=== PATIENT | male | born 1985 | race Two or more races ===

== ENCOUNTER → 2020-06-19 14:43 | Outpatient (BNVA) | payer BC, SELFPAY | PROVIDERS: PCP Internal Medicine; Visit Provider Surgery ==

== ENCOUNTER 2020-07-02 14:03 | Outpatient (REF) | payer BC, SELFPAY ==
[2020-07-02 14:05] VITALS: BP 130/88; PULSE 93; RESP 15; TEMP 37.3; O2SAT 99; BMI 23.4
[2020-07-02 14:26] VITALS: BP 126/71; PULSE 95; RESP 16; O2SAT 99
--- NOTE | 2020-07-02 14:30 | W.PM.OPN ---
Operative Note Operative Note Date of Service: 07/02/20 Narrative: PROCEDURE: EXCISION OF CYST, LEFT EARLOBE PREOP DIAGNOSIS: CYST, LEFT EARLOBE POSTOP DIAGNOSIS: THE SAME ABOVE SURGEON: MARYANN VANCE MD The patient is a 35-year-old male with note of an area of recurrent drainage and swelling on the posterior aspect of the left earlobe. He was seen in the office and was noted to have what appeared to be a cystic induration in the area. This also corresponded to an area of previous ear piercing. This measured about 5mm in size. He understood the technique of excision under local anesthesia. He was aware of the risks, benefits, and alternatives. The patient is brought to the minor procedure room. He was placed supine with the the right. The external ear was retracted forward and was secured in place with tape to expose the posterior aspect of the left earlobe. This cystic induration was noted. This area was prepped and draped. Lidocaine 1% was used for local anesthesia. I made an elliptical incision around this induration using blade 15 extended to the full-thickness skin and part of the subcutaneous layer excise this entire cystic induration. I then closed this incision with full-thickness nylon 5-0 interrupted sutures. Dressings were applied. He tolerated procedure well. There were no complication noted. EBL was 1 cc. He will be seen in the office for follow-up in 1-2 weeks for removal sutures.
== END 2020-07-02 14:04 | disposition home or self-care (01) ==
LOC: HO.MS 14:03
PROVIDERS: PCP Internal Medicine; Visit Provider Surgery
PROC: (CPT 11441; principal; 2020-07-02 14:25)
DX: L72.0 Epidermal cyst (principal); F17.210 Nicotine dependence, cigarettes, uncomplicated
CPT/HCPCS: 11441; 88304

== ENCOUNTER → 2020-07-16 13:43 | Outpatient (BNVA) | payer BC, SELFPAY | PROVIDERS: PCP Internal Medicine; Visit Provider Surgery ==

== ENCOUNTER 2022-06-23 15:29 | Outpatient (REF) | payer BC, SELFPAY ==
[2022-06-25 09:14] LABS: HBc Num1 0.13 S/CO (0.00-0.79); HBsAGNum1 0.31 S/CO (0.00-0.99); HIV AB/AG Nonreactive (Nonreactive); HIV Num 1 0.06 S/CO (0.00-0.99); Hepatitis B Core Antibody Nonreactive (Nonreactive); Hepatitis B Surface Antigen Negative (Negative); ~HepC Num1 0.07 S/CO (0.00-0.79); ~Hepatitis C Antibody Nonreactive (Nonreactive)
[2022-06-25 10:42] LABS: HBS Num1 76.26 mIU/mL (0-7.99); ~Hepatitis B Surface Antibody REACTIVE (Nonreactive)
[2022-06-28 21:52] LABS: Treponema pallidum Ab FTA ABS Nonreactive (Nonreactive)
== END 2022-06-23 15:30 | disposition home or self-care (01) ==
LOC: HO.LAB 15:29
PROVIDERS: PCP Internal Medicine; Visit Provider Internal Medicine
DX: Z00.00 Encounter for general adult medical examination without abnormal findings (principal); R79.89 Other specified abnormal findings of blood chemistry
CPT/HCPCS: 36415; 86704; 86706; 86780; 86803; 87340; 87389

== ENCOUNTER 2023-07-11 17:26 | Outpatient (AMB) | payer BC, SELFPAY ==
[2023-07-11 17:29] VITALS: BP 120/82; PULSE 65; O2SAT 97; BMI 25.0
--- NOTE | 2023-07-11 17:29 | A.OFFPC_ITS ---
Vital Signs 07/11/23 17:29 Height 5 ft 7 in Weight 159 lb 8 oz BMI 25.0 BP 120/82 Blood Pressure Location Lt brachial Position Sitting Pulse 65 Pulse Source Pulse Oximeter Pulse Oximetry (%) 97 Oxygen Delivery Method Room Air Intake Visit Reasons: physical Intake Note: Patient is here today for a physical. Political Worker Required: No Accompanied by: Self / Same As Patient Allergies No Known Allergies Allergy (Verified 07/11/23 17:34) Medication List - Last Reconciled 07/11/23 by Patricia Hinojosa MD No Known Home Meds Tobacco use date assessed: 07/11/23 Dental Screening Dental Screen Date: 07/11/23 Did you have a dental visit in the last 12 months?: Yes Did you have a dental problem in the last 6 months where you did not have access to dental care?: No Was dental information given to patient?: Patient has dentist HPI physical HPI Details 38-year-old male smoker coming in for ph ysical exam. Review of the notes has seen by Podiatry October 2022 for plantar wart and had wart destruction as well as ciclopirox cream. noted loosing hair on his lambert and concern on this problem [facility] Medical History (Updated 07/11/23 @ 18:15 by Patricia Hinojosa MD) Earlobe lesion Tinea cruris Ear pain, left Tobacco abuse Surgical History History of removal of cyst No pertinent past surgical history Family History Father No problems noted. Mother Esophageal cancer Depression Maternal Grandmother CVD (cardiovascular disease) Myocardial infarction Maternal Aunt Breast cancer Maternal Uncle Substance abuse Brother Depression Other Mental health problem Social History (Updated 07/11/23 @ 18:02 by Patricia Hinojosa MD) Housing: House Alcohol intake: current Alcohol intake frequency: holidays/special occasions only Comment: 2 beer once a month Patient Tobacco Use Status: Current everyday Tobacco user Cigarette Packs Per Day: 0.5 Cigarettes Per Day: 20 Years Smoked: started 15 years old e-Cigarette/Vaping Use: Former Use Second Hand Smoke Exposure: Yes service: No Current occupational status: employed Cognitive needs: No Hearing needs: No Vision needs: Yes Questionnaire PHQ-9 Over the last 2 weeks, how often have you been bothered by any of the following problems? 1. Little interest or pleasure in doing things: not at all 2. Feeling down, depressed, or hopeless: not at all 3. Trouble falling or staying asleep, or sleeping too much: not at all 4. Feeling tired or having little energy: not at all 5. Poor appetite or overeating: not at all 6. Feeling bad about yourself - or that you are a failure or have let yourself or your family down: not at all 7. Trouble concentrating on things, such as reading the newspaper or watching television: not at all 8. Moving or speaking so slowly that other people could have noticed. Or the opposite - being so fidgety or restless that you have been moving around a lot more than usual: not at all 9. Thoughts that you would be better off or of hurting yourself in some way: not at all Total score: 0 Depression Screening Interpretation: Negative Depression Screening Done: Yes 79466 - PHQ-9 Billing: Yes Source: Developed by Drs. Navid Morgan, Amarilis Danielle, John Solo and colleagues, with an educational pool from [employer]. Thrive Questionnaire Date Thrive assessed: 07/11/23 I am a: Patient What is your living situation today?: I have a steady place to live Within the past 12 months, did the food you bought not last and you didn't have the money to get more?: Never true Within the past 12 months, did you worry whether your food would run out before you got money to buy more?: Never true Do you have trouble paying for medicines?: No Do you have trouble getting transportation to medical appointments?: No Do you have trouble paying your heating and electricity bill?: No Do you have trouble taking care of your child, family member or friend?: No Do you have trouble with day-to-day activities such as bathing, preparing meals, shopping, managing finances, etc.?: No Are you currently unemployed and looking for a job?: No Are you interested in more education?: No Please select the resources that you would like help with: None Currently or been in a relationship where the following occur: no concerns reported THRIVE Score: 0 AUDIT C Alcohol Use Questionnaire (AUDIT-C) 1. How often do you have a drink containing alcohol?: Monthly or less 3. How often do you have six or more drinks on one occasion?: Never Total Score: 1 MOLLY-7 AMB Questionnaire MOLLY-7 Date MOLLY - 7 assessed: 07/11/23 Feeling nervous, anxious, or on edge: 0 = Not at all Not being able to stop or control worryin = Not at all Worrying too much about different things: 0 = Not at all Trouble relaxin = Not at all Being so restless that it is hard to sit still: 0 = Not at all Becoming easily annoyed or irritable: 0 = Not at all Feeling afraid as if something awful might happen: 0 = Not at all Total MOLLY-7 score (0-4 normal; 5-9 mild; 10-14 moderate; 15-21 severe): 0 Source: Developed by Drs. Navid Morgan, Amarilis Danielle, John Solo and colleagues, with an educational pool from [employer]. MOLLY-7 Assessment Billing MOLLY-7 Assessment Tool: MOLLY-7 Assessment 22279 Review of Systems Const Denies poor appetite and Denies weakness Eyes Denies no additional complaints ENT Reports Normal hearing present, Denies dizziness, Denies nasal congestion, Denies tinnitus and Denies sore throat Card Denies chest pain, Denies syncope, Denies rapid heart rate and Denies dyspnea Resp Denies cough and Denies dyspnea GI Denies change in stool character, Reports constipation, Denies diarrhea, Denies nausea and Denies vomiting Denies dysuria and Denies urinary frequency Neuro Reports Normal hearing present, Denies confusion, Denies dizziness, Denies syncope and Denies weakness Psych Denies confusion Physical exam (Primary Care) Vital Signs: Last Vital Signs Pulse 65 07/11/23 17:29 BP 120/82 07/11/23 17:29 Pulse Ox 97 07/11/23 17:29 Oxygen Delivery Method Room Air 07/11/23 17:29 BMI result Body Mass Index 25.0 Tobacco/Smoking Status: Tobacco use Status Tobacco use date assessed 07/11/23 07/11/23 17:35 Patient Tobacco Use Status Current everyday Tobacco 07/11/23 17:35 e-Cigarette/Vaping Use Former Use 07/11/23 17:35 PHQ-9: PHQ-9 Score PHQ-9: Total score 0 07/11/23 17:35 Depression Screening Interpretation: Negative Thrive Assessment: Date of Thrive Assessment Date Thrive assessed 07/11/23 07/11/23 17:35 Currently or been in a relationship where the following occur: no concerns reported Const General: No confusion Orientation/consciousness: No confusion HENMT Head: Yes normocephalic Ears: external ears normal and TM's normal bilaterally Face and sinus: Yes normal facial exam Mouth: moist mucous membranes Throat: Yes tonsils normal Eyes Conjunctivae: conjunctivae normal Pupils: Equal, round and reactive pupils present and Pupil accommodation reflex normal Direct Ophthalmoscopy: normal light reflex Neck Neck: No lymphadenopathy Thyroid: Thyroid normal Chest Chest palpation & inspection: normal inspection of the chest Resp Effort & Inspection: normal respiratory effort and no audible wheezes Auscultation: clear to auscultation bilaterally, no crackles, no wheezes and lung sounds not diminished Cardio Rate: regular rate Rhythm: regular rhythm Peripheral pulses: radial pulses present and dorsalis pedis present GI Other: visual exam negative Palpation (GI): no masses Auscultation: normal bowel sounds and normoactive bowel sounds Rectal Exam - Male: Yes deferred Male General Exam: Yes normal external exam Skin General skin exam: no rashes or lesions noted Rashes: no rashes Neuro General: No confusion Cranial nerves: Yes Equal, round and reactive pupils present and Yes Normal hearing present Cognition (Neuro): normal cognition Gait exam (Neuro): Normal gait present Motor exam (neuro): 5/5 motor strength present throughout Deep tendon reflexes (DTR's): Right brachioradialis reflex intensity grade: 2+, Left brachioradialis reflex intensity grade: 2+, Right patellar reflex intensity grade: 2+ and Left patellar reflex intensity grade: 2+ Extrem General: No edema Assessment and Plan Assessment & Plan (1) Annual physical exam: Code(s): Z00.00 - Encounter for general adult medical examination without abnormal findings (2) Plantar wart of both feet: Code(s): B07.0 - Plantar wart Plan: Patient has seen the podiatry October 2022 and has had destruction of the verruca (3) Tobacco abuse: Code(s): Z72.0 - Tobacco use Plan: Patient is strongly advised to stop smoking! (4) Hair loss: Code(s): L65.9 - Nonscarring hair loss, unspecified Orders: Orders Comprehensive Met. Panel Today L65.9 - Nonscarring hair loss, unspecified Free T4 (Free Thyroxine) Today L65.9 - Nonscarring hair loss, unspecified Thyroid Stimulating Hormone Today L65.9 - Nonscarring hair loss, unspecified Lipid Panel Today E78.00 - Pure hypercholesterolemia, unspecified, L65.9 - Nonscarring hair loss, unspecified Complete Blood Count Auto Diff Today L65.9 - Nonscarring hair loss, unspecified Vitamin B12 and Folate Today L65.9 - Nonscarring hair loss, unspecified Referrals Dermatology Referral L65.9 - Nonscarring hair loss, unspecified Coding Level of Care Code Est Pt Prev Care [id number]) Diagnoses Annual physical exam Z00.00 Plantar wart of both feet B07.0 Tobacco abuse Z72.0 Hair loss L65.9 Additional Codes MOLLY-7 Assessment Billing - OMLLY-7 Assessment Tool: MOLLY-7 Assessment [id number] ([id number])
== END 2023-07-11 18:19 | disposition home or self-care (01) ==
LOC: HO.HMGH 17:26
PROVIDERS: PCP Internal Medicine; Visit Provider Internal Medicine
DX: Z00.00 Encounter for general adult medical examination without abnormal findings (principal); B07.0 Plantar wart; Z72.0 Tobacco use; L65.9 Nonscarring hair loss, unspecified
CPT/HCPCS: 99395

== ENCOUNTER 2024-07-16 17:11 | Outpatient (AMB) | payer BC, SELFPAY ==
--- NOTE | 2024-07-16 17:49 | A.OFFPC_ITS ---
Vital Signs 07/16/24 17:51 Height 5 ft 7 in Weight 161 lb BMI 25.2 BP 120/80 Blood Pressure Location Lt brachial Position Sitting Pulse 57 Pulse Source Pulse Oximeter Pulse Oximetry (%) 99 Oxygen Delivery Method Room Air Intake Visit Reasons: pe Intake Note: patient here for a physical exam Counselor Aid Required: No Accompanied by: Self / Same As Patient Allergies No Known Allergies Allergy (Verified 07/16/24 17:56) Medication List - Last Reconciled 07/16/24 by Patrciia Hinojosa MD No Known Home Meds Tobacco use date assessed: 07/16/24 Dental Screening Dental Screen Date: 07/16/24 Did you have a dental visit in the last 12 months?: Yes Did you have a dental problem in the last 6 months where you did not have access to dental care?: No Was dental information given to patient?: Patient has dentist HPI pe HPI Details History of Present Illness The patient is a 39 year old male presenting with wellness concerns and requests for routine blood work and sexually transmitted infection testing. He is a smoker and uses cannabis recreationally, reporting difficulty with cessation. He has newly reported issues with hemorrhoids, experiencing intermittent bleeding when straining during bowel movements. The hemorrhoid condition has been identified in the past upon self-examination. Additionally, the patient describes experiencing an athlete's foot (suspected tinea pedis) attributed to prolonged hours in work boots. Previous medical history includes no other specified diagnosis, surgeries, or known allergic reactions. There is a notable family history of esophageal cancer in his mother, breast cancer in his aunt, and myocardial infarction in his grandmother. Recent evaluation for vision yielded no concerns. The patient reports consuming alcohol infrequently, approximately once a month, and prefers villa ade in daily consumption, without significant intake of water. No medication or tlaf-ilx-jfdmvib supplement use reported. Previous comprehensive health assessments, including eye examination, were last conducted in late 2022. Health Maintenance - Discussion on tobacco cessation and it s benefits, including reduced risks for heart attacks and lung cancer. - Advised lung cancer screening at age 5 0 if significant smoking history continues. - Instruction on adequate water intake t o improve hydration and aid digestion. - Counseled routine exercise and balance d diet high in fiber and green leafy vegetables to improve bowel health and prevent hemorrhoidal flare-ups. - Offered flu and COVID-19 vaccinations as preventive measures, with mention of respiratory syncytial virus (RSV) awareness during cold seasons. Social History - Smoker: Reports smoking cigarettes reg ularly. - Recreational cannabis user. - Alcohol intake occurs infrequently, ab out once per month. - Dietary habits predominantly include c onsumption of villa ade. - Employment involves prolonged hours we aring work boots, contributing to foot fungal infections. Review of Systems - Gastrointestinal: Reports occasional h eartburn (non-weekly). Denies nausea, vomiting, problem swallowing, or changes in bowel movement. - Respiratory: Denies shortness of breat h, chest pains, or coughing. - Neurological: Denies dizziness, fainti ng, or changes in hearing. - Urinary: Denies frequent nocturnal uri nation or difficulties. - Integumentary: Reports symptoms consis tent with tinea pedis. Physical Exam General: Cooperative, healthy appearing, comfortable, no acute distress and well developed Orientation: Patient oriented x3 Limitations: No limitations Head: Normal to inspection Ears: Hearing grossly normal bilaterally Nose: Normal external nose present Face and sinus: Normal facial exam Eyes: Appearance normal, both eyes and all related structures Neck: Normal visual inspection and Yes full ROM Respiratory: Normal respiratory effort and able to speak in complete sentences. Clear to auscultation bilaterally Cardiovascular: Regular rate and rhythm. Normal S1 and S2 GI: Normal to inspection. Soft to palpation and nontender Skin: No rashes or lesions noted, but patient reports redness and bumps due to shaving and a fungal infection on the foot Neuro: Patient oriented x3 Extremities: Normal to inspection, but patient reports hemorrhoids and occasional bleeding Results Plan - Recommend cessation of smoking and can nabis to reduce cardiovascular and pulmonary risks. - Promised prescription treatment for ti adriana pedis, with antifungal cream for use twice daily and supplementary powder for prevention. - Guidance on proper bathroom habits and increased dietary fiber to manage hemorrhoids. - Scheduled blood work including sexuall y transmitted infection screening. - Offer flu vaccination and educate on p otential benefits of COVID-19 vaccination. Patient was informed and verbally consented to the use of an ambient scribe for clinic note documentation during this visit. Discussion Notes I discussed with the patient the importance of stopping smoking and recreational cannabis use to improve long-term health outcomes, including reduced risks for cardiovascular events and potential lung cancer. We covered management for tinea pedis with antifungal treatment prescribed and recommended proper foot hygiene to prevent recurrence. I emphasized the importance of high dietary fiber intake to manage hemorrhoids and proper techniques to avoid straining during bowel movements. The patient consented to routine blood work, including sexually transmitted infection screening, and requested these to be carried out without scheduling. I advised on the efficacy and necessity of vaccinations against flu and COVID-19, particularly due to ongoing viral circulation. I instructed the patient to report any further bleeding or significant changes in symptoms, with a follow-up action dependent on blood work outcomes. Patient Instructions - Refrain from smoking tobacco and using cannabis. - Apply prescribed antifungal cream betw een toes and use the powder as directed. - Eat more high-fiber foods, such as veg etables and fruits, and drink plenty of water. - Use proper techniques when using the r estroom, avoiding straining. - Attend blood work for routine testing and STIs, fast 8 hours before. - Considering vaccination for flu and [place] VID-19 which will help protect during flu season. - Monitor for any changes in symptoms or increased bleeding, and report back if they occur. [facility] Medical History (Updated 07/16/24 @ 18:27 by Patricia Hinojosa MD) Earlobe lesion Tinea cruris Ear pain, left Tobacco abuse Surgical History History of removal of cyst No pertinent past surgical history Family History Father No problems noted. Mother Esophageal cancer Depression Maternal Grandmother CVD (cardiovascular disease) Myocardial infarction Maternal Aunt Breast cancer Maternal Uncle Substance abuse Brother Depression Other Mental health problem Social History Housing: House Alcohol intake: current Alcohol intake frequency: holidays/special occasions only Comment: 2 beer once a month Patient Tobacco Use Status: Current everyday Tobacco user Cigarettes Per Day: 10 Years Smoked: started 15 years old e-Cigarette/Vaping Use: Former Use Second Hand Smoke Exposure: Yes service: No Current occupational status: employed Current occupational exposures/hazards: No Cognitive needs: No Hearing needs: No Vision needs: Yes Questionnaire PHQ-9 Over the last 2 weeks, how often have you been bothered by any of the following problems? 1. Little interest or pleasure in doing things: not at all 2. Feeling down, depressed, or hopeless: not at all 3. Trouble falling or staying asleep, or sleeping too much: not at all 4. Feeling tired or having little energy: not at all 5. Poor appetite or overeating: not at all 6. Feeling bad about yourself - or that you are a failure or have let yourself or your family down: not at all 7. Trouble concentrating on things, such as reading the newspaper or watching television: not at all 8. Moving or speaking so slowly that other people could have noticed. Or the opposite - being so fidgety or restless that you have been moving around a lot more than usual: not at all 9. Thoughts that you would be better off or of hurting yourself in some way: not at all Total score: 0 Depression Screening Interpretation: Negative Depression Screening Done: Yes Source: Developed by Drs. Navid Morgan, Amarilis Danielle, John Solo and colleagues, with an educational pool from [employer] Thrive Questionnaire Date Thrive assessed: 07/16/24 I am a: Patient What is your living situation today?: I have a steady place to live Within the past 12 months, did the food you bought not last and you didn't have the money to get more?: Never true Within the past 12 months, did you worry whether your food would run out before you got money to buy more?: Never true Do you have trouble paying for medicines?: No Do you have trouble getting transportation to medical appointments?: No Do you have trouble paying your heating and electricity bill?: No Do you have trouble taking care of your child, family member or friend?: No Do you have trouble with day-to-day activities such as bathing, preparing meals, shopping, managing finances, etc.?: No Are you currently unemployed and looking for a job?: No Are you interested in more education?: No Please select the resources that you would like help with: None Currently or been in a relationship where the following occur: No concerns reported THRIVE Score: 0 AUDIT C Alcohol Use Questionnaire (AUDIT-C) 1. How often do you have a drink containing alcohol?: Monthly or less 2. How many drinks containing alcohol do you have on a typical day when you are drinking?: 1 or 2 3. How often do you have six or more drinks on one occasion?: Never Total Score: 1 MOLLY-7 AMB Questionnaire MOLLY-7 Date MOLLY - 7 assessed: 07/16/24 Feeling nervous, anxious, or on edge: 0 = Not at all Not being able to stop or control worryin = Not at all Worrying too much about different things: 0 = Not at all Trouble relaxin = Not at all Being so restless that it is hard to sit still: 0 = Not at all Becoming easily annoyed or irritable: 0 = Not at all Feeling afraid as if something awful might happen: 0 = Not at all Total MOLLY-7 score (0-4 normal; 5-9 mild; 10-14 moderate; 15-21 severe): 0 Source: Developed by Drs. Navid Morgan, Amarilis Danielle, John Solo and colleagues, with an educational pool from [employer]. Review of Systems Const Denies poor appetite and Denies weakness Eyes Denies no additional complaints ENT Reports Normal hearing present, Denies dizziness, Denies nasal congestion, Denies tinnitus and Denies sore throat Card Denies chest pain, Denies syncope, Denies rapid heart rate and Denies dyspnea Resp Denies cough and Denies dyspnea GI Denies change in stool character, Reports constipation, Denies diarrhea, Denies nausea and Denies vomiting Denies dysuria and Denies urinary frequency Neuro Reports Normal hearing present, Denies confusion, Denies dizziness, Denies syncope and Denies weakness Psych Denies confusion Physical exam (Primary Care) Vital Signs: Last Vital Signs Pulse 57 07/16/24 17:51 BP 120/80 07/16/24 17:51 Pulse Ox 99 07/16/24 17:51 Oxygen Delivery Method Room Air 07/16/24 17:51 BMI result Body Mass Index 25.2 Tobacco/Smoking Status: Tobacco use Status Tobacco use date assessed 07/16/24 07/16/24 18:00 Patient Tobacco Use Status Current everyday Tobacco 07/16/24 17:54 e-Cigarette/Vaping Use Former Use 07/16/24 17:54 PHQ-9: PHQ-9 Score PHQ-9: Total score 0 07/16/24 18:36 Depression Screening Interpretation: Negative Thrive Assessment: Date of Thrive Assessment Date Thrive assessed 07/16/24 07/16/24 17:54 Currently or been in a relationship where the following occur: No concerns reported Const General: No confusion Orientation/consciousness: No confusion HENMT Head: Yes normocephalic Ears: external ears normal and TM's normal bilaterally Face and sinus: Yes normal facial exam Mouth: moist mucous membranes Throat: Yes tonsils normal Eyes Conjunctivae: conjunctivae normal Pupils: Equal, round and reactive pupils present and Pupil accommodation reflex normal Direct Ophthalmoscopy: normal light reflex Neck Neck: No lymphadenopathy Thyroid: Thyroid normal Chest Chest palpation & inspection: normal inspection of the chest Resp Effort & Inspection: normal respiratory effort and no audible wheezes Auscultation: clear to auscultation bilaterally, no crackles, no wheezes and lung sounds not diminished Cardio Rate: regular rate Rhythm: regular rhythm Peripheral pulses: radial pulses present and dorsalis pedis present GI Palpation (GI): no masses Auscultation: normal bowel sounds and normoactive bowel sounds Rectal Exam - Male: Yes deferred Skin General skin exam: no rashes or lesions noted Rashes: no rashes Neuro General: No confusion Cranial nerves: Yes Equal, round and reactive pupils present and Yes Normal hearing present Cognition (Neuro): normal cognition Gait exam (Neuro): Normal gait present Motor exam (neuro): 5/5 motor strength present throughout Deep tendon reflexes (DTR's): Right brachioradialis reflex intensity grade: 2+, Left brachioradialis reflex intensity grade: 2+, Right patellar reflex intensity grade: 2+ and Left patellar reflex intensity grade: 2+ Extrem General: No edema Office Procedures Flu Questionnaire Does the patient have a severe egg allergy?: No Does the patient have severe life threatening allergies?: No Does the patient have a fever or illness today?: No Has the patient ever had Guillain-Chelsea Syndrome?: No Has the patient ever had any past reaction to a flu shot?: No Immunizations Fluarix Triv [id number] (PF) 45 mcg (15 mcg x 3)/0.5 mL IM syringe Performing Provider: Patricia Hinojosa MD [facility] Administered by: WALE Marvin on 07/16/24 18:36 Dose Route Admin Location Dispensed Lot Number Expiration Date [facility] [employer] 0.5 mL IM Left Deltoid 0.5 mL [id number] 11/19/24 [id number] [employer] VIS Given Date VIS Provided VIS Publication Date 07/16/24 Single Vaccine 20 Eligibility Eligibility Date Funding Source Not [facility] Eligible 07/16/24 Private Coding Level of Care Code Est Pt Prev Care 18-39y(46761) Diagnoses Annual physical exam Z00.00 Tobacco abuse Z72.0 Hemorrhoid K64.9 Tinea pedis B35.3 Assessment & Plan Assessment & Plan (1) Annual physical exam: Code(s): Z00.00 - Encounter for general adult medical examination without abnormal findings Category: Medical Plan: Patient is advised to eat healthy, keep well hydrated, keep active and have adequate sleep. (2) Tobacco abuse: Code(s): Z72.0 - Tobacco use Category: Medical Plan: Patient is strongly advised to stop smoking (3) Hemorrhoid: Code(s): K64.9 - Unspecified hemorrhoids Category: Medical (4) Tinea pedis: Code(s): B35.3 - Tinea pedis Category: Medical Plan History of Present Illness The patient is a 39 year old male presenting with wellness concerns and requests for routine blood work and sexually transmitted infection testing. He is a smoker and uses cannabis recreationally, reporting difficulty with cessation. He has newly reported issues with hemorrhoids, experiencing intermittent bleeding when straining during bowel movements. The hemorrhoid condition has been identified in the past upon self-examination. Additionally, the patient describes experiencing an athlete's foot (suspected tinea pedis) attributed to prolonged hours in work boots. Previous medical history includes no other specified diagnosis, surgeries, or known allergic reactions. There is a notable family history of esophageal cancer in his mother, breast cancer in his aunt, and myocardial infarction in his grandmother. Recent evaluation for vision yielded no concerns. The patient reports consuming alcohol infrequently, approximately once a month, and prefers villa ade in daily consumption, without significant intake of water. No medication or bsbj-oqv-burqfvr supplement use reported. Previous comprehensive health assessments, including eye examination, were last conducted in late 2022. Health Maintenance - Discussion on tobacco cessation and its benefits, including reduced risks for heart attacks and lung cancer. - Advised lung cancer screening at age 50 if significant smoking history continues. - Instruction on adequate water intake to improve hydration and aid digestion. - Counseled routine exercise and balanced diet high in fiber and green leafy vegetables to improve bowel health and prevent hemorrhoidal flare-ups. - Offered flu and COVID-19 vaccinations as preventive measures, with mention of respiratory syncytial virus (RSV) awareness during cold seasons. Social History - Smoker: Reports smoking cigarettes regularly. - Recreational cannabis user. - Alcohol intake occurs infrequently, about once per month. - Dietary habits predominantly include consumption of villa ade. - Employment involves prolonged hours wearing work boots, contributing to foot fungal infections. Review of Systems - Gastrointestinal: Reports occasional heartburn (non-weekly). Denies nausea, vomiting, problem swallowing, or changes in bowel movement. - Respiratory: Denies shortness of breath, chest pains, or coughing. - Neurological: Denies dizziness, fainting, or changes in hearing. - Urinary: Denies frequent nocturnal urination or difficulties. - Integumentary: Reports symptoms consistent with tinea pedis. Physical Exam General: Cooperative, healthy appearing, comfortable, no acute distress and well developed Orientation: Patient oriented x3 Limitations: No limitations Head: Normal to inspection Ears: Hearing grossly normal bilaterally Nose: Normal external nose present Face and sinus: Normal facial exam Eyes: Appearance normal, both eyes and all related structures Neck: Normal visual inspection and Yes full ROM Respiratory: Normal respiratory effort and able to speak in complete sentences. Clear to auscultation bilaterally Cardiovascular: Regular rate and rhythm. Normal S1 and S2 GI: Normal to inspection. Soft to palpation and nontender Skin: No rashes or lesions noted, but patient reports redness and bumps due to shaving and a fungal infection on the foot Neuro: Patient oriented x3 Extremities: Normal to inspection, but patient reports hemorrhoids and occasional bleeding Results Plan - Recommend cessation of smoking and cannabis to reduce cardiovascular and pulmonary risks. - Promised prescription treatment for tinea pedis, with antifungal cream for use twice daily and supplementary powder for prevention. - Guidance on proper bathroom habits and increased dietary fiber to manage hemorrhoids. - Scheduled blood work including sexually transmitted infection screening. - Offer flu vaccination and educate on potential benefits of COVID-19 vaccination. Patient was informed and verbally consented to the use of an ambient scribe for clinic note documentation during this visit. Discussion Notes I discussed with the patient the importance of stopping smoking and recreational cannabis use to improve long-term health outcomes, including reduced risks for cardiovascular events and potential lung cancer. We covered management for tinea pedis with antifungal treatment prescribed and recommended proper foot hygiene to prevent recurrence. I emphasized the importance of high dietary fiber intake to manage hemorrhoids and proper techniques to avoid straining during bowel movements. The patient consented to routine blood work, including sexually lima smitted infection screening, and requested these to be carried out without scheduling. I advised on the efficacy and necessity of vaccinations against flu and COVID-19, particularly due to ongoing viral circulation. I instructed the patient to report any further bleeding or significant changes in symptoms, with a follow-up action dependent on blood work outcomes. Patient Instructions - Refrain from smoking tobacco and using cannabis. - Apply prescribed antifungal cream between toes and use the powder as directed. - Eat more high-fiber foods, such as vegetables and fruits, and drink plenty of water. - Use proper techniques when using the restroom, avoiding straining. - Attend blood work for routine testing and STIs, fast 8 hours before. - Considering vaccination for flu and COVID-19 which will help protect during flu season. - Monitor for any changes in symptoms or increased bleeding, and report back if they occur. Orders: Orders Complete Blood Count Auto Diff Today Z00.00 - Encounter for general adult medical examination without abnormal findings Free T4 (Free Thyroxine) Today Z00.00 - Encounter for general adult medical examination without abnormal findings Lipid Panel Today E78.00 - Pure hypercholesterolemia, unspecified, Z00.00 - Encounter for general adult medical examination without abnormal findings Thyroid Stimulating Hormone Today Z00.00 - Encounter for general adult medical examination without abnormal findings HIV Ab/Ag Today Z00.00 - Encounter for general adult medical examination without abnormal findings Hepatitis B,C Profile Today R79.89 - Other specified abnormal findings of blood chemistry, Z00.00 - Encounter for general adult medical examination without abnormal findings Comprehensive Met. Panel Today Z00.00 - Encounter for general adult medical examination without abnormal findings Vitamin B12 and Folate Today Z00.00 - Encounter for general adult medical examination without abnormal findings CT NG by PCR Today Z00.00 - Encounter for general adult medical examination without abnormal findings Syphilis Screen Today Z00.00 - Encounter for general adult medical examination without abnormal findings Influenza [id number] Immunization Today Z23 - Encounter for immunization Medications: New miconazole nitrate 2% (Zeasorb AF) 1 appl topical BID 85 grams 0RF B35.3 - Tammy a pedis clotrimazole 1% 1 appl topical BID 45 grams 1RF 4 weeks B35.3 - Tinea pedis Patient Instructions: avoid getting constipated andeat more fiber, increase oral fluids and keep active
[2024-07-16 17:51] VITALS: BP 120/80; PULSE 57; O2SAT 99; BMI 25.2
--- OUTSIDE RECORDS SUMMARY | 2024-07-16 18:42 | XMS_ITS | Patient Health Record ---
Author Organization [facility] Address [address] [place] [address] Care Team Providers Care Finished Cigar Maker Name Role Phone Patricia Hinojosa Primary Care Provider Nicolás Garcia Unavailable [phone] Allergies No Known Allergies Reason For Referral No Information Medications Medication SIG (Take, Route, Frequency, Duration) Notes Start Date End Date Status LamISIL 250 MG 1 tablet Orally Once a day for 30 days 12/23/2022 Active Ciclopirox Olamine 0.77 % 1 application to affected area Externally to feet Twice a day for 30 days Active Social History Tobacco Use: Social History Observation Description Date Details (start date - stop date) Current Smoker NA - NA Tobacco Use/Smoking Question Answer Notes Are you a: current smoker How many cigarettes a day do you smoke? 04-11 Alcohol Screen Question Answer Notes Did you have a drink containing alcohol in the p ast year? Yes Points 0 Interpretation Negative Tobacco use other than smoking: Question Answer Notes Are you an other tobacco user? Yes V ape Problems Problem Type SNOMED Code ICD Code Onset Dates Problem Status W/U Status Risk Notes Problem Plantar wart (88837579) Plantar wart (B07.0) Active confirmed Plan Of Treatment Pending Test Test Name Order Date [id number] Destruction, 06-0511/04/2022 [id number] Destruction, 06-0512/02/2022 [id number] Destruction, 06-0512/23/2022 Insurance Providers Payer Name Payer Address Payer Phone Subscriber Number Group Number Insured Name Patient Relationship to Insured Coverage Start Date [facility]age End Date [facility] [address] [place] [address] [phone] [id number] Nasir Lawson Self - patient is the insured Medical (General) History Medical History History ICD Code Chicken pox
--- OUTSIDE RECORDS SUMMARY | 2024-07-16 18:42 | XMS_ITS ---
Author Organization [facility] Address [address] [place] [id number] Care Team Providers Care Coffee Farmer Name Role Phone Patricia Hinojosa Primary Care Provider Nicolás Garcia Unavailable [phone] REASON FOR VISIT Dosen't feel Well Encounters Encounter Location Date Provider Diagnosis [facility] [address] [place] [phone] 01/27/2023 Nicolás Huynh Plan Of Treatment No Information Progress Notes * Nasir LAWSONDOB:1985 ([age] yo M)Acc No.[id number]:01/27/2023 Progress Notes Patient:?Nasir LAWSON Provider:?Nicolás Huynh DPM :1985???Age:37 Y???Sex:Male New e:01/27/2023 Address:[address] [place], [place] [id number] Pcp:Patricia Hinojosa Subjective: * Chief Complaints: * ???1. Dosen't feel Well. * Medical History:?Chicken pox . Objective: * Vitals:? Assessment: Plan: * Treatment: * Images: * The named appointment provid er may or may not be the originator of this progress note, and it is not deemed complete until electronically signed by the appointment provider. Sign off status: Pending * Provider:?Nicolás Huynh DPM Date:?2022 Generated for Walkeri nehemiah/Allegra/eTransmitting on:?07/16/2024 06:41 PM EST
--- OUTSIDE RECORDS SUMMARY | 2024-07-16 18:42 | XMS_ITS ---
Author Organization [facility] Address [address] [place] [address] Care Team Providers Care Central Office Repairer Supervisor Name Role Phone Patricia Hinojosa Primary Care Provider Nicolás Garcia Unavailable [phone] REASON FOR VISIT CX Appt 01/27 Encounters Encounter Location Date Provider Diagnosis [address] [phone] 01/27/2023 Nicolás Huynh Plan Of Treatment No Information Progress Notes * RENNY NasirDOB:1985 ([age] yo M)Acc No.[id number]:01/27/2023 Patient:?Nasir Lawson :1985???Age:37 Y???Sex:Male Address:[address] [place] [id number] * true * Date:? Generated for Cal cerna/Allegra/eTransmitting on:?07/16/2024 06:41 PM EST
== END 2024-07-16 18:28 | disposition home or self-care (01) ==
PROVIDERS: PCP Internal Medicine; Visit Provider Internal Medicine
DX: Z00.00 Encounter for general adult medical examination without abnormal findings (principal); Z72.0 Tobacco use; K64.9 Unspecified hemorrhoids; B35.3 Tinea pedis; Z23 Encounter for immunization

== ENCOUNTER → 2024-07-16 17:11 | Outpatient (BNVA) | payer BC, SELFPAY | PROVIDERS: PCP Internal Medicine; Visit Provider Internal Medicine | DX: Z00.00 Encounter for general adult medical examination without abnormal findings (principal); Z23 Encounter for immunization; K64.9 Unspecified hemorrhoids; B35.3 Tinea pedis; Z72.0 Tobacco use | CPT/HCPCS: 90471; 90656; 96127 ==